=== PATIENT | male | born 1955 | race Two or more races ===

== ENCOUNTER 2020-08-19 03:57 | Inpatient (IN) | payer MEDICAID, OTHER, SELFPAY ==
[~2020-08-19] VITALS: Ht 172.7 cm; Wt 72.8 kg
[2020-08-19] MEDS: ATORVASTATIN 20 MG TAB PO SCH (00:30)
[2020-08-19] MEDS ORDERED: methylPREDNISolone SOD SUCC 125 MG/2 ML VL ONE (04:08)
[2020-08-19 05:05] LABS: Basophils # (auto) 0 10 ^3/uL (0-0.2); Basophils % (auto) 0.2 % (0.0-2.0); Eosinophils # (auto) 0 10 ^3/uL (0-0.8); Hematocrit 43.7 % (41.0-53.0); Hemoglobin 14.8 g/dL (13.5-17.5); Lymphocytes # (auto) 0.9 10 ^3/uL (0.4-5.4); Lymphocytes % (auto) 5.4 % (10.0-50.0); Mean Corpuscular Hgb Conc. 33.9 g/dL (32.0-36.0); Mean Corpuscular Volume 94.3 fL (80.0-100.0); Monocytes # (auto) 0.8 10 ^3/uL (0-1.3); Monocytes % (auto) 4.8 % (0.0-12.0); Neutrophils # (auto) 14.1 10 ^3/uL (1.6-8.6); Neutrophils % (auto) 89.6 % (37.0-80.0); Nucleated Red Blood Cells % 0.2 %; Platelet Count (auto) 300 10^3/uL (140-450); Red Blood Cells 4.63 10^6/uL (4.5-5.90); Red Cell Distribution Width 13.4 % (11.8-14.3); White Blood Cell 15.8 10^3/uL (4.4-10.8)
[2020-08-19] MEDS ORDERED: methylPREDNISolone SOD SUCC 125 MG/2 ML VL IV ONE (05:30)
[2020-08-19 05:35] LABS: Albumin 2.4 g/dL (3.4-5.0); Calcium 8.1 mg/dL (8.5-10.1); Potassium 4.1 mmol/L (3.5-5.1)
[2020-08-19 05:41] LABS: Bilirubin, Total 0.7 mg/dL (0.2-1.0); INR 1.13 (0.9-1.15); Total Protein 7.7 g/dL (6.4-8.2)
[2020-08-19 06:39] VITALS: BP 146/95
[2020-08-19] MEDS ORDERED: DOXYCYCLINE 100MG/250ML 250 ML IV ONE (07:30)
[2020-08-19] MEDS ORDERED: DexAMETHasone SOD PHOS 10MG/1ML VIAL INJ IV ONE (07:30)
[2020-08-19 09:19] LABS: Lactic Acid w/Reflex 3.4 mmol/L (0.4-2.0)
[2020-08-19] MEDS ORDERED: NITROGLYCERIN 0.4 MG SL TAB SL PRN (09:45)
[2020-08-19] MEDS ORDERED: ONDANSETRON HCL 4 MG/2 ML VIAL IV PRN (09:45)
[2020-08-19] MEDS ORDERED: MORPHINE SULF INJ 2 MG/ML SYRINGE 1ML IV PRN ×2 (09:45)
[2020-08-19] MEDS ORDERED: REMDESIVIR PER PHARMACY 0 ML IV SCH (09:45)
[2020-08-19] MEDS ORDERED: ACETAMINOPHEN 500 MG TAB PO PRN (09:45)
[2020-08-19] MEDS ORDERED: HYDROcodone-ACET 5/325MG TAB PO PRN (09:45)
[2020-08-19] MEDS ORDERED: hydrALAZINE HCL 20 MG/ML VL IV PRN (09:45)
[2020-08-19] MEDS: cefTRIAXone 1GM/50ML D5W 50 ML IV SCH (09:45)
[2020-08-19] MEDS: BUDESONIDE (INHALATION) 180 MCG IH IN SCH ×2 (10:00→22:00)
[2020-08-19] MEDS: FAMOTIDINE 20 MG TAB PO SCH (10:00)
[2020-08-19] MEDS: DexAMETHasone SOD PHOS 10MG/1ML VIAL INJ IV SCH (10:00)
[2020-08-19] MEDS: ASPirin-EC 81 mg tab PO SCH (10:00)
[2020-08-19] MEDS: ASCORBIC ACID 1,000 MG TAB PO SCH (10:00)
[2020-08-19] MEDS: ENOXAPARIN SOD 40 MG/0.4 ML SYRINGE SC SCH (10:00)
[2020-08-19] MEDS: CHOLECALCIFEROL (VITD3) 2,000 UNIT CAP/TAB PO SCH (10:00)
[2020-08-19] MEDS: ZINC SULFATE 220mg CAP or TAB PO SCH (10:00)
[2020-08-19] MEDS: AZITHROMYCIN 500MG/ 250ML 250 ML IV SCH (10:00)
[2020-08-19] MEDS: FUROSEMIDE 20 MG/2 ML VIAL IV SCH (10:00)
[2020-08-19] MEDS ORDERED: ACET-1304 PO (12:17)
[2020-08-19] MEDS ORDERED: PHEN1LIQ39 PO (12:17)
[2020-08-19 18:35] VITALS: BP 128/77
[2020-08-20] MEDS: ENOXAPARIN SOD 40 MG/0.4 ML SYRINGE SC SCH ×2 (00:30→10:03)
[2020-08-20 04:19] VITALS: BP 145/79
[2020-08-20] MEDS ORDERED: PNEUMOCOCCAL VACC POLYS 25 MCG/0.5 ML VIAL IM ONE (04:45)
[2020-08-20] MEDS ORDERED: INFLUENZA QUAD 2020-2021 0.5 ML SYRG IM ONE (04:45)
[2020-08-20 06:18] VITALS: BP 145/79
[2020-08-20] MEDS: BUDESONIDE (INHALATION) 180 MCG IH IN SCH ×2 (06:42→22:00)
[2020-08-20 08:00] VITALS: BP 126/76
[2020-08-20] MEDS ORDERED: REMDESIVIR PER PHARMACY 0 ML IV SCH (08:45)
[2020-08-20 09:49] LABS: Basophils # (auto) 0.1 10 ^3/uL (0-0.2); Basophils % (auto) 0.3 % (0.0-2.0); Eosinophils # (auto) 0 10 ^3/uL (0-0.8); Lymphocytes # (auto) 0.6 10 ^3/uL (0.4-5.4); Lymphocytes % (auto) 2.6 % (10.0-50.0); Mean Corpuscular Hemoglobin 31.7 pg (28.0-32.0); Mean Corpuscular Hgb Conc. 33.4 g/dL (32.0-36.0); Mean Corpuscular Volume 94.9 fL (80.0-100.0); Monocytes # (auto) 0.8 10 ^3/uL (0-1.3); Monocytes % (auto) 3.4 % (0.0-12.0); Neutrophils # (auto) 22.4 10 ^3/uL (1.6-8.6); Neutrophils % (auto) 93.7 % (37.0-80.0); Nucleated Red Blood Cells % 0.1 %; Platelet Count (auto) 266 10^3/uL (140-450); Red Blood Cells 4.43 10^6/uL (4.5-5.90); Red Cell Distribution Width 13.4 % (11.8-14.3); White Blood Cell 23.9 10^3/uL (4.4-10.8)
[2020-08-20] MEDS: DexAMETHasone SOD PHOS 10MG/1ML VIAL INJ IV SCH (10:02)
[2020-08-20] MEDS: ZINC SULFATE 220mg CAP or TAB PO SCH (10:02)
[2020-08-20] MEDS: cefTRIAXone 1GM/50ML D5W 50 ML IV SCH (10:02)
[2020-08-20] MEDS: FUROSEMIDE 20 MG/2 ML VIAL IV SCH (10:02)
[2020-08-20] MEDS: ASCORBIC ACID 1,000 MG TAB PO SCH (10:03)
[2020-08-20] MEDS: CHOLECALCIFEROL (VITD3) 2,000 UNIT CAP/TAB PO SCH (10:03)
[2020-08-20] MEDS: FAMOTIDINE 20 MG TAB PO SCH (10:03)
[2020-08-20] MEDS: ASPirin-EC 81 mg tab PO SCH (10:03)
[2020-08-20 10:15] LABS: Albumin 2.3 g/dL (3.4-5.0); Calcium 8.3 mg/dL (8.5-10.1); Potassium 3.8 mmol/L (3.5-5.1)
[2020-08-20 10:25] LABS: BUN/Creatinine Ratio 35.8; Bilirubin, Total 0.5 mg/dL (0.2-1.0); Total Protein 7.8 g/dL (6.4-8.2)
[2020-08-20] MEDS: AZITHROMYCIN 500MG/ 250ML 250 ML IV SCH (12:10)
[2020-08-20 13:00] VITALS: BP 123/66
[2020-08-20] MEDS: SODIUM CHLORIDE 0.9% 1,000 ML IV ONE ×2 (14:30→15:47)
[2020-08-20] MEDS ORDERED: REMDESIVIR 200 MG in NS 210ml LOADING DOSE ADULT IV ONE (15:00)
[2020-08-20 17:00] VITALS: BP 122/61
[2020-08-20] MEDS: ENOXAPARIN SOD 80 MG/0.8ML SYRINGE SC SCH (21:51)
[2020-08-20] MEDS: ATORVASTATIN 20 MG TAB PO SCH (21:51)
[2020-08-20 22:00] VITALS: BP 122/71
[2020-08-21] VITALS (10 sets, daily range): BP systolic 113–139; BP diastolic 70–85
[2020-08-21] MEDS: ALBUTEROL SULF HFA 90MCG INH 200DOSE IN PRN (02:17)
[2020-08-21] MEDS: cefTRIAXone 1GM/50ML D5W 50 ML IV SCH (08:38)
[2020-08-21 08:41] LABS: Basophils # (auto) 0 10 ^3/uL (0-0.2); Basophils % (auto) 0.2 % (0.0-2.0); Eosinophils # (auto) 0 10 ^3/uL (0-0.8); Hemoglobin 13.9 g/dL (13.5-17.5); Lymphocytes # (auto) 0.6 10 ^3/uL (0.4-5.4); Lymphocytes % (auto) 3.4 % (10.0-50.0); Mean Corpuscular Hemoglobin 31.5 pg (28.0-32.0); Mean Corpuscular Hgb Conc. 33.1 g/dL (32.0-36.0); Mean Corpuscular Volume 95.1 fL (80.0-100.0); Monocytes # (auto) 0.7 10 ^3/uL (0-1.3); Monocytes % (auto) 4.3 % (0.0-12.0); Neutrophils # (auto) 15.9 10 ^3/uL (1.6-8.6); Neutrophils % (auto) 92.1 % (37.0-80.0); Nucleated Red Blood Cells % 0.1 %; Platelet Count (auto) 289 10^3/uL (140-450); Red Blood Cells 4.42 10^6/uL (4.5-5.90); Red Cell Distribution Width 13.3 % (11.8-14.3); White Blood Cell 17.3 10^3/uL (4.4-10.8)
[2020-08-21 08:48] LABS: Potassium 3.8 mmol/L (3.5-5.1)
[2020-08-21 09:05] LABS: Albumin 2.4 g/dL (3.4-5.0); BUN/Creatinine Ratio 40.7; Bilirubin, Total 0.5 mg/dL (0.2-1.0); CRP High Sensitivity 8.9 mg/dL (< 0.3); Calcium 8.5 mg/dL (8.5-10.1); Magnesium 3.3 mg/dL (1.6-2.6); Phosphorus 3.6 mg/dL (2.5-4.90); Total Protein 7.4 g/dL (6.4-8.2)
[2020-08-21] MEDS: FAMOTIDINE 20 MG TAB PO SCH (10:48)
[2020-08-21] MEDS: ASPirin-EC 81 mg tab PO SCH (10:48)
[2020-08-21] MEDS: ZINC SULFATE 220mg CAP or TAB PO SCH (10:48)
[2020-08-21] MEDS: DexAMETHasone SOD PHOS 10MG/1ML VIAL INJ IV SCH (10:48)
[2020-08-21] MEDS: AZITHROMYCIN 500MG/ 250ML 250 ML IV SCH (10:48)
[2020-08-21] MEDS: ASCORBIC ACID 1,000 MG TAB PO SCH (10:49)
[2020-08-21] MEDS: ENOXAPARIN SOD 80 MG/0.8ML SYRINGE SC SCH ×2 (10:49→22:10)
[2020-08-21] MEDS: CHOLECALCIFEROL (VITD3) 2,000 UNIT CAP/TAB PO SCH (10:49)
[2020-08-21] MEDS ORDERED: ERGOCALCIFEROL 50,000 UNIT(1.25MG) CAP PO SCH (13:15)
[2020-08-21] MEDS: REMDESIVIR 100 MG in SODIUM CHL 0.9% 250 ML IV SCH (15:30)
[2020-08-21] MEDS: BUDESONIDE (INHALATION) 180 MCG IH IN SCH (18:50)
[2020-08-21] MEDS: ATORVASTATIN 20 MG TAB PO SCH (22:10)
[2020-08-22] MEDS: ALBUTEROL SULF HFA 90MCG INH 200DOSE IN PRN ×3 (00:33→21:02)
[2020-08-22 05:00] VITALS: BP 135/87
[2020-08-22] MEDS: BUDESONIDE (INHALATION) 180 MCG IH IN SCH ×2 (06:55→20:40)
[2020-08-22 07:44] LABS: Potassium 4.1 mmol/L (3.5-5.1)
[2020-08-22 07:56] LABS: Albumin 2.6 g/dL (3.4-5.0); BUN/Creatinine Ratio 38.8; Bilirubin, Total 0.6 mg/dL (0.2-1.0); Calcium 8.6 mg/dL (8.5-10.1); Total Protein 7.2 g/dL (6.4-8.2)
[2020-08-22 09:00] VITALS: BP 140/75
[2020-08-22] MEDS: cefTRIAXone 1GM/50ML D5W 50 ML IV SCH (09:42)
[2020-08-22] MEDS: AZITHROMYCIN 500MG/ 250ML 250 ML IV SCH (10:00)
[2020-08-22] MEDS: ASCORBIC ACID 1,000 MG TAB PO SCH (10:09)
[2020-08-22] MEDS: DexAMETHasone SOD PHOS 10MG/1ML VIAL INJ IV SCH (10:09)
[2020-08-22] MEDS: ZINC SULFATE 220mg CAP or TAB PO SCH (10:09)
[2020-08-22] MEDS: FAMOTIDINE 20 MG TAB PO SCH (10:09)
[2020-08-22] MEDS: ASPirin-EC 81 mg tab PO SCH (10:09)
[2020-08-22] MEDS: CHOLECALCIFEROL (VITD3) 2,000 UNIT CAP/TAB PO SCH (10:10)
[2020-08-22] MEDS: ENOXAPARIN SOD 80 MG/0.8ML SYRINGE SC SCH ×2 (10:10→21:33)
[2020-08-22 13:00] VITALS: BP 172/78
[2020-08-22] MEDS: REMDESIVIR 100 MG in SODIUM CHL 0.9% 250 ML IV SCH (16:28)
[2020-08-22 17:00] VITALS: BP 100/64
[2020-08-22] MEDS: ATORVASTATIN 20 MG TAB PO SCH (21:33)
[2020-08-22 23:25] VITALS: BP 136/82
[2020-08-23 05:29] VITALS: BP 136/76
[2020-08-23] MEDS: BUDESONIDE (INHALATION) 180 MCG IH IN SCH ×2 (07:24→19:40)
[2020-08-23 07:40] LABS: Potassium 4.6 mmol/L (3.5-5.1)
[2020-08-23 07:52] LABS: Albumin 2.5 g/dL (3.4-5.0); BUN/Creatinine Ratio 36.6; Bilirubin, Total 0.7 mg/dL (0.2-1.0); Calcium 8.7 mg/dL (8.5-10.1); Total Protein 7.4 g/dL (6.4-8.2)
[2020-08-23] MEDS: ALBUTEROL SULF HFA 90MCG INH 200DOSE IN PRN ×2 (07:52→19:40)
[2020-08-23 09:00] VITALS: BP 126/74
[2020-08-23] MEDS: cefTRIAXone 1GM/50ML D5W 50 ML IV SCH (09:00)
[2020-08-23] MEDS: CHOLECALCIFEROL (VITD3) 2,000 UNIT CAP/TAB PO SCH (10:00)
[2020-08-23] MEDS: ZINC SULFATE 220mg CAP or TAB PO SCH (10:00)
[2020-08-23] MEDS: ENOXAPARIN SOD 80 MG/0.8ML SYRINGE SC SCH ×2 (10:00→21:37)
[2020-08-23] MEDS: ASPirin-EC 81 mg tab PO SCH (10:00)
[2020-08-23] MEDS: AZITHROMYCIN 500MG/ 250ML 250 ML IV SCH (10:00)
[2020-08-23] MEDS: DexAMETHasone SOD PHOS 10MG/1ML VIAL INJ IV SCH (10:00)
[2020-08-23] MEDS: FAMOTIDINE 20 MG TAB PO SCH ×2 (10:00→21:37)
[2020-08-23] MEDS: ASCORBIC ACID 1,000 MG TAB PO SCH (10:00)
[2020-08-23 13:20] VITALS: BP 139/71
[2020-08-23 14:54] LABS: Basophils # (auto) 0.1 10 ^3/uL (0-0.2); Basophils % (auto) 0.8 % (0.0-2.0); Eosinophils # (auto) 0 10 ^3/uL (0-0.8); Eosinophils % (auto) 0.3 % (0.0-7.0); Hematocrit 41.4 % (41.0-53.0); Hemoglobin 13.9 g/dL (13.5-17.5); Lymphocytes # (auto) 0.1 10 ^3/uL (0.4-5.4); Lymphocytes % (auto) 0.9 % (10.0-50.0); Mean Corpuscular Hemoglobin 32.2 pg (28.0-32.0); Mean Corpuscular Hgb Conc. 33.6 g/dL (32.0-36.0); Mean Corpuscular Volume 95.8 fL (80.0-100.0); Monocytes # (auto) 0.3 10 ^3/uL (0-1.3); Monocytes % (auto) 2.1 % (0.0-12.0); Neutrophils % (auto) 95.9 % (37.0-80.0); Platelet Count (auto) 297 10^3/uL (140-450); Red Blood Cells 4.33 10^6/uL (4.5-5.90); Red Cell Distribution Width 13.1 % (11.8-14.3); White Blood Cell 13.5 10^3/uL (4.4-10.8)
[2020-08-23] MEDS: REMDESIVIR 100 MG in SODIUM CHL 0.9% 250 ML IV SCH (15:00)
[2020-08-23 15:14] LABS: Albumin 2.4 g/dL (3.4-5.0)
[2020-08-23 15:34] LABS: BUN/Creatinine Ratio 35.4; Bilirubin, Total 0.5 mg/dL (0.2-1.0)
[2020-08-23 16:07] LABS: Potassium 4.5 mmol/L (3.5-5.1)
[2020-08-23 16:55] VITALS: BP 123/77
[2020-08-23] MEDS: ATORVASTATIN 20 MG TAB PO SCH (21:36)
[2020-08-23 22:00] VITALS: BP 119/69
[2020-08-24 05:00] VITALS: BP 112/72
[2020-08-24 07:03] LABS: Basophils # (auto) 0 10 ^3/uL (0-0.2); Eosinophils # (auto) 0.1 10 ^3/uL (0-0.8); Eosinophils % (auto) 0.7 % (0.0-7.0); Hematocrit 42.2 % (41.0-53.0); Hemoglobin 14.1 g/dL (13.5-17.5); Lymphocytes # (auto) 0.6 10 ^3/uL (0.4-5.4); Lymphocytes % (auto) 6.8 % (10.0-50.0); Mean Corpuscular Hemoglobin 32.3 pg (28.0-32.0); Mean Corpuscular Hgb Conc. 33.5 g/dL (32.0-36.0); Mean Corpuscular Volume 96.4 fL (80.0-100.0); Monocytes # (auto) 0.2 10 ^3/uL (0-1.3); Monocytes % (auto) 2.5 % (0.0-12.0); Neutrophils # (auto) 8.1 10 ^3/uL (1.6-8.6); Platelet Count (auto) 297 10^3/uL (140-450); Red Blood Cells 4.37 10^6/uL (4.5-5.90); Red Cell Distribution Width 13.4 % (11.8-14.3)
[2020-08-24] MEDS: BUDESONIDE (INHALATION) 180 MCG IH IN SCH ×2 (07:05→18:25)
[2020-08-24 07:23] LABS: Potassium 4.7 mmol/L (3.5-5.1)
[2020-08-24 07:37] LABS: Albumin 2.3 g/dL (3.4-5.0); BUN/Creatinine Ratio 36.3; Bilirubin, Total 0.7 mg/dL (0.2-1.0); Calcium 8.8 mg/dL (8.5-10.1); Total Protein 6.9 g/dL (6.4-8.2)
[2020-08-24 08:44] VITALS: BP 124/66
[2020-08-24] MEDS: cefTRIAXone 1GM/50ML D5W 50 ML IV SCH (09:00)
[2020-08-24] MEDS: ASCORBIC ACID 1,000 MG TAB PO SCH (09:01)
[2020-08-24] MEDS: FAMOTIDINE 20 MG TAB PO SCH ×2 (09:01→21:11)
[2020-08-24] MEDS: ENOXAPARIN SOD 80 MG/0.8ML SYRINGE SC SCH ×2 (09:02→21:11)
[2020-08-24] MEDS: ASPirin-EC 81 mg tab PO SCH (09:02)
[2020-08-24] MEDS: ZINC SULFATE 220mg CAP or TAB PO SCH (09:02)
[2020-08-24] MEDS: DexAMETHasone SOD PHOS 10MG/1ML VIAL INJ IV SCH (09:02)
[2020-08-24] MEDS: CHOLECALCIFEROL (VITD3) 2,000 UNIT CAP/TAB PO SCH (09:03)
[2020-08-24] MEDS: AZITHROMYCIN 500MG/ 250ML 250 ML IV SCH (09:03)
[2020-08-24] MEDS: LINEZOLID 600MG TABLET PO SCH ×2 (10:00→21:12)
[2020-08-24 13:00] VITALS: BP 119/77
[2020-08-24] MEDS: REMDESIVIR 100 MG in SODIUM CHL 0.9% 250 ML IV SCH (15:00)
[2020-08-24 16:58] VITALS: BP 109/71
[2020-08-24] MEDS: ALBUTEROL SULF HFA 90MCG INH 200DOSE IN PRN (18:25)
[2020-08-24] MEDS: ATORVASTATIN 20 MG TAB PO SCH (21:11)
[2020-08-24 22:00] VITALS: BP 111/65
[2020-08-25 05:00] VITALS: BP 113/67
[2020-08-25] MEDS: ASPirin-EC 81 mg tab PO SCH (08:40)
[2020-08-25] MEDS: FAMOTIDINE 20 MG TAB PO SCH ×2 (08:41→22:44)
[2020-08-25] MEDS: ASCORBIC ACID 1,000 MG TAB PO SCH (08:41)
[2020-08-25] MEDS: CHOLECALCIFEROL (VITD3) 2,000 UNIT CAP/TAB PO SCH (08:41)
[2020-08-25] MEDS: ZINC SULFATE 220mg CAP or TAB PO SCH (08:42)
[2020-08-25] MEDS: DexAMETHasone SOD PHOS 10MG/1ML VIAL INJ IV SCH (08:42)
[2020-08-25] MEDS: ENOXAPARIN SOD 80 MG/0.8ML SYRINGE SC SCH ×2 (08:42→22:45)
[2020-08-25] MEDS: cefTRIAXone 1GM/50ML D5W 50 ML IV SCH (08:43)
[2020-08-25 09:00] VITALS: BP 116/69
[2020-08-25] MEDS: LINEZOLID 600MG TABLET PO SCH ×2 (10:00→22:45)
[2020-08-25 13:00] VITALS: BP 110/64
[2020-08-25 17:00] VITALS: BP 115/72
[2020-08-25 22:00] VITALS: BP 114/64
[2020-08-25] MEDS: ATORVASTATIN 20 MG TAB PO SCH (22:44)
[2020-08-26 05:00] VITALS: BP 114/68
[2020-08-26] MEDS: ALBUTEROL SULF HFA 90MCG INH 200DOSE IN PRN ×2 (07:05→19:10)
[2020-08-26 09:00] VITALS: BP 101/60
[2020-08-26] MEDS: DexAMETHasone SOD PHOS 10MG/1ML VIAL INJ IV SCH (09:40)
[2020-08-26] MEDS: cefTRIAXone 1GM/50ML D5W 50 ML IV SCH (09:40)
[2020-08-26] MEDS: FAMOTIDINE 20 MG TAB PO SCH ×2 (09:47→21:54)
[2020-08-26] MEDS: LINEZOLID 600MG TABLET PO SCH ×2 (09:47→21:54)
[2020-08-26] MEDS: ENOXAPARIN SOD 80 MG/0.8ML SYRINGE SC SCH ×2 (09:47→21:55)
[2020-08-26] MEDS: FUROSEMIDE 20 MG/2 ML VIAL IV SCH (09:47)
[2020-08-26] MEDS: ASCORBIC ACID 1,000 MG TAB PO SCH (09:48)
[2020-08-26] MEDS: ASPirin-EC 81 mg tab PO SCH (09:48)
[2020-08-26] MEDS: ZINC SULFATE 220mg CAP or TAB PO SCH (09:48)
[2020-08-26] MEDS: CHOLECALCIFEROL (VITD3) 2,000 UNIT CAP/TAB PO SCH (09:48)
[2020-08-26 13:00] VITALS: BP 114/73
[2020-08-26 17:00] VITALS: BP 110/65
[2020-08-26] MEDS: BUDESONIDE (INHALATION) 180 MCG IH IN SCH (19:10)
[2020-08-26 21:00] VITALS: BP 113/61
[2020-08-26] MEDS: ATORVASTATIN 20 MG TAB PO SCH (21:54)
[2020-08-27 05:00] VITALS: BP 98/56
[2020-08-27] MEDS: BUDESONIDE (INHALATION) 180 MCG IH IN SCH ×2 (06:25→21:44)
[2020-08-27 08:00] VITALS: BP 103/45
[2020-08-27] MEDS: DexAMETHasone SOD PHOS 10MG/1ML VIAL INJ IV SCH (09:21)
[2020-08-27] MEDS: FUROSEMIDE 20 MG/2 ML VIAL IV SCH (09:21)
[2020-08-27] MEDS: ASPirin-EC 81 mg tab PO SCH (09:22)
[2020-08-27] MEDS: FAMOTIDINE 20 MG TAB PO SCH ×2 (09:22→21:22)
[2020-08-27] MEDS: ZINC SULFATE 220mg CAP or TAB PO SCH (09:22)
[2020-08-27] MEDS: cefTRIAXone 1GM/50ML D5W 50 ML IV SCH (09:22)
[2020-08-27] MEDS: ENOXAPARIN SOD 80 MG/0.8ML SYRINGE SC SCH ×2 (09:23→21:22)
[2020-08-27] MEDS: CHOLECALCIFEROL (VITD3) 2,000 UNIT CAP/TAB PO SCH (09:23)
[2020-08-27] MEDS: ASCORBIC ACID 1,000 MG TAB PO SCH (11:12)
[2020-08-27] MEDS: LINEZOLID 600MG TABLET PO SCH ×2 (11:29→21:22)
[2020-08-27 16:00] VITALS: BP 120/70
[2020-08-27] MEDS: ATORVASTATIN 20 MG TAB PO SCH (21:21)
[2020-08-27] MEDS: ALBUTEROL SULF HFA 90MCG INH 200DOSE IN PRN (21:44)
[2020-08-27 22:00] VITALS: BP 118/71
[2020-08-28 05:00] VITALS: BP 105/63
[2020-08-28 09:18] VITALS: BP 104/61
[2020-08-28] MEDS: cefTRIAXone 1GM/50ML D5W 50 ML IV SCH (10:33)
[2020-08-28] MEDS: BUDESONIDE (INHALATION) 180 MCG IH IN SCH (10:33)
[2020-08-28] MEDS: DexAMETHasone SOD PHOS 10MG/1ML VIAL INJ IV SCH (10:33)
[2020-08-28] MEDS: FUROSEMIDE 20 MG/2 ML VIAL IV SCH (10:33)
[2020-08-28] MEDS: ASCORBIC ACID 1,000 MG TAB PO SCH (10:34)
[2020-08-28] MEDS: FAMOTIDINE 20 MG TAB PO SCH ×2 (10:34→20:47)
[2020-08-28] MEDS: ASPirin-EC 81 mg tab PO SCH (10:34)
[2020-08-28] MEDS: CHOLECALCIFEROL (VITD3) 2,000 UNIT CAP/TAB PO SCH (10:34)
[2020-08-28] MEDS: ZINC SULFATE 220mg CAP or TAB PO SCH (10:34)
[2020-08-28] MEDS: ENOXAPARIN SOD 80 MG/0.8ML SYRINGE SC SCH ×2 (10:35→20:47)
[2020-08-28] MEDS: LINEZOLID 600MG TABLET PO SCH ×2 (10:35→20:47)
[2020-08-28 16:00] VITALS: BP 105/67
[2020-08-28] MEDS: ATORVASTATIN 20 MG TAB PO SCH (20:46)
[2020-08-28 23:07] VITALS: BP 121/71
[2020-08-29 05:10] VITALS: BP 109/68
[2020-08-29 06:04] LABS: Basophils # (auto) 0 10 ^3/uL (0-0.2); Basophils % (auto) 0.3 % (0.0-2.0); Eosinophils # (auto) 0 10 ^3/uL (0-0.8); Eosinophils % (auto) 0.3 % (0.0-7.0); Hematocrit 41.4 % (41.0-53.0); Hemoglobin 14.5 g/dL (13.5-17.5); Lymphocytes # (auto) 1.4 10 ^3/uL (0.4-5.4); Lymphocytes % (auto) 22.6 % (10.0-50.0); Mean Corpuscular Hgb Conc. 34.9 g/dL (32.0-36.0); Mean Corpuscular Volume 94.5 fL (80.0-100.0); Monocytes # (auto) 0.4 10 ^3/uL (0-1.3); Monocytes % (auto) 7.1 % (0.0-12.0); Neutrophils # (auto) 4.4 10 ^3/uL (1.6-8.6); Neutrophils % (auto) 69.7 % (37.0-80.0); Nucleated Red Blood Cells % 0.1 %; Platelet Count (auto) 318 10^3/uL (140-450); Red Blood Cells 4.38 10^6/uL (4.5-5.90); Red Cell Distribution Width 13.1 % (11.8-14.3); White Blood Cell 6.3 10^3/uL (4.4-10.8)
[2020-08-29 06:23] LABS: Albumin 2.4 g/dL (3.4-5.0); Calcium 8.6 mg/dL (8.5-10.1); Potassium 3.9 mmol/L (3.5-5.1)
[2020-08-29 06:27] LABS: BUN/Creatinine Ratio 34.3; Bilirubin, Total 0.6 mg/dL (0.2-1.0); CRP High Sensitivity 0.55 mg/dL (< 0.3); Total Protein 6.5 g/dL (6.4-8.2)
[2020-08-29 08:00] VITALS: BP 125/68
[2020-08-29] MEDS: cefTRIAXone 1GM/50ML D5W 50 ML IV SCH (09:56)
[2020-08-29] MEDS: DexAMETHasone SOD PHOS 10MG/1ML VIAL INJ IV SCH (09:56)
[2020-08-29] MEDS: ZINC SULFATE 220mg CAP or TAB PO SCH (09:57)
[2020-08-29] MEDS: FUROSEMIDE 20 MG/2 ML VIAL IV SCH (09:57)
[2020-08-29] MEDS: ASCORBIC ACID 1,000 MG TAB PO SCH (09:57)
[2020-08-29] MEDS: ASPirin-EC 81 mg tab PO SCH (09:57)
[2020-08-29] MEDS: FAMOTIDINE 20 MG TAB PO SCH ×2 (09:57→22:00)
[2020-08-29] MEDS: CHOLECALCIFEROL (VITD3) 2,000 UNIT CAP/TAB PO SCH (09:58)
[2020-08-29] MEDS: BUDESONIDE (INHALATION) 180 MCG IH IN SCH ×2 (09:58→22:00)
[2020-08-29] MEDS: ENOXAPARIN SOD 80 MG/0.8ML SYRINGE SC SCH ×2 (09:58→22:42)
[2020-08-29] MEDS: LINEZOLID 600MG TABLET PO SCH ×2 (09:58→23:10)
[2020-08-29 16:00] VITALS: BP 106/63
[2020-08-29] MEDS: ATORVASTATIN 20 MG TAB PO SCH (22:52)
[2020-08-30] VITALS: BP 117/71
[2020-08-30 08:00] VITALS: BP 112/67
[2020-08-30] MEDS: BUDESONIDE (INHALATION) 180 MCG IH IN SCH ×2 (10:00→19:30)
[2020-08-30] MEDS: cefTRIAXone 1GM/50ML D5W 50 ML IV SCH (10:12)
[2020-08-30] MEDS: DexAMETHasone SOD PHOS 10MG/1ML VIAL INJ IV SCH (10:12)
[2020-08-30] MEDS: ASPirin-EC 81 mg tab PO SCH (10:13)
[2020-08-30] MEDS: ENOXAPARIN SOD 80 MG/0.8ML SYRINGE SC SCH ×2 (10:13→21:18)
[2020-08-30] MEDS: ZINC SULFATE 220mg CAP or TAB PO SCH (10:13)
[2020-08-30] MEDS: FAMOTIDINE 20 MG TAB PO SCH ×2 (10:13→21:17)
[2020-08-30] MEDS: ASCORBIC ACID 1,000 MG TAB PO SCH (10:13)
[2020-08-30] MEDS: CHOLECALCIFEROL (VITD3) 2,000 UNIT CAP/TAB PO SCH (10:13)
[2020-08-30] MEDS: LINEZOLID 600MG TABLET PO SCH ×2 (10:13→21:17)
[2020-08-30] MEDS: FUROSEMIDE 20 MG/2 ML VIAL IV SCH (10:13)
[2020-08-30 16:06] VITALS: BP 113/68
[2020-08-30] MEDS: ALBUTEROL SULF HFA 90MCG INH 200DOSE IN PRN (19:30)
[2020-08-30] MEDS: ATORVASTATIN 20 MG TAB PO SCH (21:17)
[2020-08-31] VITALS: BP 113/70
[2020-08-31] MEDS: BUDESONIDE (INHALATION) 180 MCG IH IN SCH (07:16)
[2020-08-31] MEDS: ALBUTEROL SULF HFA 90MCG INH 200DOSE IN PRN (07:16)
[2020-08-31 09:00] VITALS: BP 108/64
[2020-08-31] MEDS: cefTRIAXone 1GM/50ML D5W 50 ML IV SCH (09:21)
[2020-08-31] MEDS: ZINC SULFATE 220mg CAP or TAB PO SCH (09:22)
[2020-08-31] MEDS: FUROSEMIDE 20 MG/2 ML VIAL IV SCH (09:22)
[2020-08-31] MEDS: ASPirin-EC 81 mg tab PO SCH (09:22)
[2020-08-31] MEDS: DexAMETHasone SOD PHOS 10MG/1ML VIAL INJ IV SCH (09:22)
[2020-08-31] MEDS: FAMOTIDINE 20 MG TAB PO SCH (09:23)
[2020-08-31] MEDS: CHOLECALCIFEROL (VITD3) 2,000 UNIT CAP/TAB PO SCH (09:23)
[2020-08-31] MEDS: ASCORBIC ACID 1,000 MG TAB PO SCH (09:23)
[2020-08-31] MEDS: ENOXAPARIN SOD 80 MG/0.8ML SYRINGE SC SCH (09:23)
[2020-08-31] MEDS: LINEZOLID 600MG TABLET PO SCH (10:00)
[2020-08-31 14:20] VITALS: BP 108/64
[2020-08-31 16:28] VITALS: BP 114/80
== END 2020-08-31 18:20 | disposition home or self-care (01) | DRG 720 ==
LOC: EDBD 03:57 → ER 03:57 → OVERFLOW 09:39 → TELE-E-ADS 08-20 03:05 → TELE-EAST 08-20 12:53 → TELE-E-ADS 08-20 12:57
PROVIDERS: ADMIT Nurse Practitioner Acute Care; ATTEND Internal Medicine
PROC: XW033E5 Introduction of Remdesivir Anti-infective into Peripheral Vein, Percutaneous Approach, New Technology Group 5 (ICD-10-PCS; 2020-08-19)
PROC: 5A09357 Assistance with Respiratory Ventilation, Less than 24 Consecutive Hours, Continuous Positive Airway Pressure (ICD-10-PCS; 2020-08-19)
PROC: XW13325 Transfusion of Convalescent Plasma (Nonautologous) into Peripheral Vein, Percutaneous Approach, New Technology Group 5 (ICD-10-PCS; principal; 2020-08-21)
DX: A41.9 Sepsis, unspecified organism (principal); U07.1 COVID-19; N17.0 Acute kidney failure with tubular necrosis; J96.01 Acute respiratory failure with hypoxia; I21.A1 Myocardial infarction type 2; I50.43 Acute on chronic combined systolic (congestive) and diastolic (congestive) heart failure; J12.89 Other viral pneumonia; D68.59 Other primary thrombophilia; J44.0 Chronic obstructive pulmonary disease with (acute) lower respiratory infection; J44.1 Chronic obstructive pulmonary disease with (acute) exacerbation; N18.31 Chronic kidney disease, stage 3a; E55.9 Vitamin D deficiency, unspecified; B95.62 Methicillin resistant Staphylococcus aureus infection as the cause of diseases classified elsewhere; R73.03 Prediabetes
CPT/HCPCS: 36415; 36600; 71045; 80053; 80061; 82306; 82728; 82805; 82962; 83036; 83605; 83615; 83735; 83880; 84100; 84443; 84484; 85025; 85379; 85610; 85730; 86141; 86850; 86900; 86901; 87040; 87070; 87077; 87081; 87186; 87205; 87426; 93005; 93306; 94640; 94660; 96365; 96367; 96375; G0378; J0696; J1100; J3490

== ENCOUNTER → 2023-01-19 | Outpatient (CLI) | payer OTHER, MEDICAID ==
[~2023-01-19] MED LIST: ACET-1304 PO; PHEN1LIQ39 PO
== END | disposition home or self-care (01) ==
LOC: XYW 14:03
PROVIDERS: ATTEND Internal Medicine
DX: I50.30 Unspecified diastolic (congestive) heart failure (principal)
CPT/HCPCS: 93306

== ENCOUNTER → 2023-02-16 | Outpatient (CLI) | payer OTHER, MEDICAID | END | disposition home or self-care (01) | LOC: LAB 13:43 | PROVIDERS: ATTEND Internal Medicine | DX: Z12.11 Encounter for screening for malignant neoplasm of colon (principal); I13.0 Hypertensive heart and chronic kidney disease with heart failure and stage 1 through stage 4 chronic kidney disease, or unspecified chronic kidney disease; N18.2 Chronic kidney disease, stage 2 (mild); I50.30 Unspecified diastolic (congestive) heart failure; R73.03 Prediabetes | CPT/HCPCS: 82270 ==

== ENCOUNTER → 2023-08-03 | Outpatient (CLI) | payer OTHER, MEDICAID | END | disposition home or self-care (01) | LOC: LAB 11:04 | PROVIDERS: ATTEND Internal Medicine | DX: R73.03 Prediabetes (principal); I10 Essential (primary) hypertension | CPT/HCPCS: 36415; 82306; 83036; 84443 ==

== ENCOUNTER → 2023-11-21 | Outpatient (CLI) | payer OTHER, MEDICAID ==
[~2023-11-21] MED LIST changes: +ACE3T PO; +CHOLCAP12 PO; +NIFE1TAB30 PO; -PHEN1LIQ39 PO; +VALS160T53 PO
== END | disposition home or self-care (01) ==
LOC: LAB 08:58
PROVIDERS: ATTEND Internal Medicine
DX: Z00.00 Encounter for general adult medical examination without abnormal findings (principal)
CPT/HCPCS: 82270

== ENCOUNTER → 2024-04-09 | Outpatient (CLI) | payer OTHER, MEDICAID ==
[2024-04-09 11:24] LABS: Basophils # (auto) 0 10 ^3/uL (0-0.2); Basophils % (auto) 0.4 % (0.0-2.0); Eosinophils # (auto) 0.1 10 ^3/uL (0-0.8); Eosinophils % (auto) 1.5 % (0.0-7.0); Hematocrit 44.1 % (41.0-53.0); Hemoglobin 15.4 g/dL (13.5-17.5); Lymphocytes # (auto) 2.9 10 ^3/uL (0.4-5.4); Lymphocytes % (auto) 40.5 % (10.0-50.0); Mean Corpuscular Hemoglobin 31.6 pg (28.0-32.0); Mean Corpuscular Hgb Conc. 34.9 g/dL (32.0-36.0); Mean Corpuscular Volume 90.6 fL (80.0-100.0); Monocytes # (auto) 0.5 10 ^3/uL (0-1.3); Monocytes % (auto) 6.6 % (0.0-12.0); Neutrophils # (auto) 3.7 10 ^3/uL (1.6-8.6); Red Blood Cells 4.87 10^6/uL (4.5-5.90); White Blood Cell 7.2 10^3/uL (4.4-10.8)
== END | disposition home or self-care (01) ==
LOC: LAB 11:06
PROVIDERS: ATTEND Internal Medicine
DX: Z12.11 Encounter for screening for malignant neoplasm of colon (principal); I12.9 Hypertensive chronic kidney disease with stage 1 through stage 4 chronic kidney disease, or unspecified chronic kidney disease; N18.30 Chronic kidney disease, stage 3 unspecified; R73.03 Prediabetes
CPT/HCPCS: 36415; 82270; 82306; 83036; 85025